=== PATIENT | male | born 1995 ===

== ENCOUNTER 2016-10-28 05:29 | Emergency (ER) | payer BC ==
[~2016-10-28] VITALS: Ht 172.7 cm; Wt 71.8 kg
[2016-10-28 05:35] VITALS: Ht 172.7 cm; Wt 71.8 kg
[2016-10-28] MEDS ORDERED: ALBU8.5H3 INH (06:17)
[2016-10-28] MEDS ORDERED: CETI10CA PO (06:18)
--- NOTE | 2016-10-28 06:22 | ERD ---
ER Documentation Chief Complaint Date/Time DATE: 10/28/16 TIME: 06:19 Chief Complaint on and off sob at night x 1 year HPI This is a 21-year-old male who presents the emergency department today complaining of intermittent shortness of breath at night. Patient states he wakes up and feels short of breath sometimes. Patient states it is worse at night or when it is cold out. States he has a history of asthma and is almost out of his inhaler. States he smokes marijuana but denies smoking cigarettes. Denies any fevers or chills, cough. ROS All systems reviewed and are negative except as per history of present illness. Medications Home Meds Active Scripts Cetirizine Hcl* (Zyrtec*) 10 Mg Capsule, 10 MG PO DAILY, #14 TAB.CHEW Prov:JESUS ALBERTO BENDER PA-C 10/28/16 Albuterol Sulfate* (Proair HFA*) 8.5 Gm Hfa.aer.ad, 2 PUFF INH Q4, #1 INHALER Prov:JESUS ALBERTO BENDER PA-C 10/28/16 Allergies Allergies: Coded Allergies: No Known Drug Allergies (Verified Allergy, Unknown, 10/28/16) PMhx/Soc Medical and Surgical Hx: pt denies Surgical Hx History of Surgery: No Anesthesia Reaction: No Hx Neurological Disorder: No Hx Respiratory Disorders: Yes (ASTHMA) Hx Cardiac Disorders: No Hx Psychiatric Problems: No Hx Miscellaneous Medical Probl: No Hx Alcohol Use: No Hx Substance Use: Yes (MARIJUANA) Hx Tobacco Use: No Smoking Status: Never smoker Physical Exam Vitals Vital Signs Date Time Temp Pulse Resp B/P Pulse Ox O2 Delivery O2 Flow Rate FiO2 10/28/16 05:35 96.5 69 20 118/72 100 Physical Exam Const: Talkative, no acute distress Head: Atraumatic Eyes: Normal Conjunctiva ENT: Ears TMs normal. Nose no drainage. Throat no erythema no exudate. Drainage posterior pharynx. Neck: Full range of motion..~ No meningismus. Resp: Clear to auscultation bilaterally. No absent breath sounds. No wheezing. Cardio: Regular rate and rhythm, no murmurs Abd: Soft, non tender, non distended. Normal bowel sounds Skin: No petechiae or rashes Neur: Awake and alert Psych: Normal Mood and Affect Procedures/MDM This a 21-year-old male who presents the emergency department today complaining of intermittent shortness of breath at night for a year.. Patient states worse when it is cold out and thinks he may have allergies. States he is without his inhaler and would like a refill on his inhaler. Patient's oxygen saturations 100%. His respirations are 20. He is afebrile and otherwise well-appearing. He is not tachycardic. He has no wheezing on physical exam. Do not feel the patient requires a breathing treatment or chest x-ray at this time. Patient indicated he was primarily here for a refill on his asthma medication. Low suspicion for acute asthma exacerbation, PE, abscess, pneumothorax, pleural effusion or pneumonia.. I did explain to the patient that he should follow-up with primary care physician for further evaluation of possible sleep apnea. Patient understood. Patient will begin a prescription for ProAir air as well as Zyrtec. At this time the patient is stable for discharge and outpatient management. Patient should follow up with their PCP in the next 1-2 days. They may return to the emergency department sooner for any persistent or worsening of symptoms. Patient understood and agreed with the plan. Departure Diagnosis: Primary Impression: Shortness of breath Condition: Fair Patient Instructions: Understanding Asthma Triggers Referrals: your PCP JESSIE SCHWAB MD,SHAHANA HAN,DESIREE SOUZA,STACI DIEGO,GLORIA RAE,ABHIJEET YAN MD,COLLEEN BURGESS,JASON REYES,YONIS MAZA,PATTI DE LA PAZ,GRACE CHRISTOPHER,MALI Mckeon MD, [facility] Additional Instructions: Call your primary care doctor TOMORROW for an appointment during the next 1-2 days.See the doctor sooner or return here if your condition worsens before your appointment time. Use inhaler as prescribed Take Zyrtec as prescribed for allergies JESUS ALBERTO BENDER PA-C Oct 28, 2016 06:22
== END 2016-10-28 06:25 | disposition home or self-care (01) ==
LOC: FTE 05:29
DX: R06.02 Shortness of breath (principal); J45.909 Unspecified asthma, uncomplicated
CPT/HCPCS: 99283

== ENCOUNTER 2017-12-11 02:08 | Emergency (ER) | END 2017-12-11 05:30 | disposition home or self-care (01) ==